=== PATIENT | male | born 1965 | race Two or more races ===

== ENCOUNTER 2025-06-01 06:39 | Emergency (ER) | payer OTHER ==
[~2025-06-01] VITALS: Ht 167.6 cm; Wt 90.7 kg
[2025-06-01 07:06] VITALS: BP 110/70; O2SAT 95
[2025-06-01] MEDS ORDERED: CARDURA1 MG PO (07:11)
[2025-06-01] MEDS ORDERED: DILTIAZEM 24HR180 MG PO (07:11)
[2025-06-01] MEDS ORDERED: FAMOtidine 10 MG/ML (4ML VIAL) IV ONE (07:30)
[2025-06-01] MEDS ORDERED: PIPERACILLIN/TAZOBACTAM SODIUM 3.375 GM VIAL IV ONE ×2 (07:30→08:11)
[2025-06-01] MEDS ORDERED: DIPHENHYDRAMINE HCL 50 MG/ML VIAL 1ML IV ONE (07:45)
[2025-06-01] MEDS ORDERED: METHYLPREDNISOLONE SOD SUCC 40 MG VIAL IV ONE (07:45)
[2025-06-01] MEDS ORDERED: 0.9 % SODIUM CHLORIDE 1,000 ML IV ONE (07:45)
[2025-06-01] MEDS ORDERED: METHYLPREDNISOLONE SOD SUCC 40 MG VIAL ONE (08:10)
[2025-06-01] MEDS ORDERED: DIPHENHYDRAMINE HCL 50 MG/ML VIAL 1ML ONE (08:10)
[2025-06-01] MEDS ORDERED: FAMOTIDINE/PF 20 MG/2 ML VIAL ONE (08:11)
[2025-06-01 08:21] LABS: BASO % 0.4 % (0.1-1.2); EOS # 0.07 (0.04-0.54); EOS % 1.3 % (0.7-7.0); LYMPH # 1.12 (1.18-3.74); LYMPH % 20.0 % (19.3-53.1); MEAN PLATELET VOLUME 10.00 fl (9.4-12.4); MONO # 0.38 (0.24-0.82); MONO % 6.8 % (4.7-12.5); NEUT # 3.96 (1.56-6.13); NEUT % 70.8 % (34.0-71.1); RED CELL DISTRIBUTION WIDTH 14.5 % (11.6-14.4)
[2025-06-01 08:45] LABS: ERYTHROCYTE SEDIMENTATION RATE 22 mm/hr (0-20)
[2025-06-01 09:02] LABS: ALT/SGPT 43 U/L (12-78); AST/SGOT 19 U/L (15-37); BILIRUBIN TOTAL 1.03 mg/dL (0.3-1.2); BUN CREA RATIO 9 (7.0-25.0); CREATININE SERUM 1.21 mg/dL (0.70-1.30); GFR 60.96; GLOBULINA 3.8 G/DL (2.4-3.5); GLUCOSE FASTING 138 mg/dL (65-100); OSMOLALITY SERUM 274 MOSM/KG (275-295)
[2025-06-01 09:04] LABS: INR 1.07
[2025-06-01 09:08] LABS: URINE APPEARANCE Clear; URINE BILIRRUBIN Negative (NEGATIVE); URINE BLOOD Small; URINE COLOR Yellow; URINE GLUCOSE Negative (NEGATIVE); URINE KETONE Negative (NEGATIVE); URINE LEUKOCYTE Large; URINE NITRATE Negative; URINE PROTEIN Negative (NEGATIVE); URINE UROBILINOGEN 0.2 E.U./dl
[2025-06-01 09:11] LABS: URINE BACTERIA 57.5 uL (0.0-1933); URINE RBC 10.5 uL (0.0-20.8); URINE WBC 611.9 uL (0.0-23.2)
[2025-06-01 09:18] LABS: URINE CAST 0.43 uL (0.0-1.40); URINE EPITHELIAL CELLS 0.1 uL (0.0-38.8)
[2025-06-01] MEDS ORDERED: VANCOMYCIN HCL 1,000 MG VIAL ONE (09:49)
[2025-06-01] MEDS ORDERED: TAMSULOSIN HCL 0.4 MG CAP PO ONE ×2 (11:00→11:07)
[2025-06-01] MEDS ORDERED: CIPRO500 MG PO (11:15)
[2025-06-01] MEDS ORDERED: PEPCID AC20 MG PO (11:15)
[2025-06-01] MEDS ORDERED: METRONIDAZOLE500 MG PO (11:15)
== END 2025-06-01 13:03 | disposition home or self-care (01) ==
LOC: ER 06:39
PROVIDERS: General Practice
DX: N39.0 Urinary tract infection, site not specified (principal); M54.89 Other dorsalgia; K57.30 Diverticulosis of large intestine without perforation or abscess without bleeding; I10 Essential (primary) hypertension; N32.1 Vesicointestinal fistula; N20.0 Calculus of kidney; Z91.041 Radiographic dye allergy status; F44.89 Other dissociative and conversion disorders

== ENCOUNTER 2025-06-03 04:26 | Inpatient (IN) | payer OTHER ==
[~2025-06-03] VITALS: Ht 167.6 cm; Wt 90.7 kg
[~2025-06-03 04:26] MED LIST: CARDURA1 MG PO; CIPRO500 MG PO; DILTIAZEM 24HR180 MG PO; METRONIDAZOLE500 MG PO; PEPCID AC20 MG PO
[2025-06-03] MEDS ORDERED: MORPHINE SULFATE 4 MG/ML CARTRIDGE IV STA ×2 (05:14→14:29)
[2025-06-03] MEDS ORDERED: 0.9 % SODIUM CHLORIDE 1,000 ML IV ONE (05:15)
[2025-06-03] MEDS ORDERED: PROMETHAZINE HCL 50 MG/ML AMPUL IM STA (05:15)
[2025-06-03] MEDS ORDERED: PROMETHAZINE HCL 50 MG/ML AMPUL IM ONE (05:19)
[2025-06-03 05:51] LABS: BASO % 0.2 % (0.1-1.2); EOS # 0.04 (0.04-0.54); EOS % 0.4 % (0.7-7.0); LYMPH # 1.34 (1.18-3.74); LYMPH % 13.2 % (19.3-53.1); MEAN PLATELET VOLUME 10.20 fl (9.4-12.4); MONO # 0.48 (0.24-0.82); MONO % 4.7 % (4.7-12.5); NEUT # 8.21 (1.56-6.13); NEUT % 80.7 % (34.0-71.1); RED CELL DISTRIBUTION WIDTH 14.6 % (11.6-14.4)
[2025-06-03] MEDS ORDERED: LACTOBACILLUS ACIDOPHILUS 1 CAP CAP PO STA (05:55)
[2025-06-03] MEDS ORDERED: LACTOBACILLUS ACIDOPHILUS 1 CAP CAP PO ONE (05:58)
[2025-06-03 06:24] LABS: INR 1.08
[2025-06-03 06:45] LABS: ALT/SGPT 42.0 U/L (12-78); AST/SGOT 20.0 U/L (15-37); BILIRUBIN TOTAL 0.63 mg/dL (0.3-1.2); BILIRUBIN,CONJUGATED 0.14 mg/dL (0.0-0.2); BUN CREA RATIO 23.0 (7.0-25.0); CREATININE SERUM 1.05 mg/dL (0.70-1.30); GFR 71.8; GLOBULINA 3.4 G/DL (2.4-3.5); GLUCOSE FASTING 137.0 mg/dL (65-100); OSMOLALITY SERUM 280.0 MOSM/KG (275-295)
[2025-06-03 08:17] LABS: URINE APPEARANCE Cloudy; URINE BILIRRUBIN Negative (NEGATIVE); URINE COLOR Dark Yellow; URINE GLUCOSE Negative (NEGATIVE); URINE KETONE Trace (NEGATIVE); URINE LEUKOCYTE Moderate; URINE NITRATE Negative; URINE PROTEIN 30 (NEGATIVE); URINE UROBILINOGEN 1.0 E.U./dl
[2025-06-03 08:21] LABS: URINE BACTERIA 154.7 uL (0.0-1933); URINE RBC 11.7 uL (0.0-20.8); URINE WBC 1365.8 uL (0.0-23.2)
[2025-06-03 08:23] LABS: URINE BLOOD TRACES; URINE CAST 1.17 uL (0.0-1.40); URINE EPITHELIAL CELLS 0.7 uL (0.0-38.8)
[2025-06-03] MEDS ORDERED: MORPHINE SULFATE 4 MG/ML CARTRIDGE IV ONE (08:45)
[2025-06-03] MEDS ORDERED: PIPERACILLIN/TAZOBACTAM SODIUM 3.375 GM VIAL IV ONE ×2 (09:54→10:00)
[2025-06-03] MEDS ORDERED: FAMOTIDINE/PF 20 MG/2 ML VIAL ONE ×2 (11:13→19:59)
[2025-06-03] MEDS ORDERED: FAMOTIDINE/PF 20 MG/2 ML VIAL IV STA (11:15)
[2025-06-03] MEDS ORDERED: ONDANSETRON HCL 2 MG/ML VIAL IV STA (12:27)
[2025-06-03] MEDS ORDERED: ONDANSETRON HCL 2 MG/ML VIAL ONE ×2 (12:46→19:59)
[2025-06-03] MEDS ORDERED: ACETAMINOPHEN 500 MG GEL..CAP PO ONE (12:55)
[2025-06-03] MEDS ORDERED: TRAMADOL HCL100 M1 PO (16:55)
[2025-06-03] MEDS ORDERED: LEVOFLOXACIN750 MG PO (16:55)
[2025-06-03] MEDS ORDERED: ONDANSETRON HCL 2 MG/ML VIAL IV ONE ×3 (20:00→20:15)
[2025-06-03] MEDS ORDERED: FAMOTIDINE/PF 20 MG/2 ML VIAL IV ONE ×3 (20:00→20:15)
[2025-06-03] MEDS ORDERED: KETOROLAC TROMETHAMINE 30 MG VIAL ONE (20:03)
[2025-06-03] MEDS ORDERED: KETOROLAC TROMETHAMINE 30 MG VIAL IV ONE (20:15)
[2025-06-03] MEDS ORDERED: KETOROLAC TROMETHAMINE 30 MG VIAL IM ONE (20:15)
[2025-06-03] MEDS ORDERED: DILTIAZEM HCL 240 MG CAP.SR.24H PO SCH (23:39)
[2025-06-03] MEDS ORDERED: ONDANSETRON HCL 4 MG in 0.9 % SODIUM CHLORIDE 50 ML IV PRN (23:45)
[2025-06-03] MEDS ORDERED: 0.9 % SODIUM CHLORIDE 1,000 ML IV SCH (23:45)
[2025-06-03] MEDS ORDERED: MORPHINE SULFATE 4 MG/ML CARTRIDGE IV PRN (23:45)
[2025-06-03] MEDS ORDERED: FAMOTIDINE/PF 20 MG in 0.9 % SODIUM CHLORIDE 8 ML IV PUSH SCH (23:48)
[2025-06-04] MEDS ORDERED: PIPERACILLIN/TAZOBACTAM SODIUM 3.375 GM in 0.9 % SODIUM CHLORIDE 100 ML IV SCH
[2025-06-04 08:00] VITALS: BP 118/85; O2SAT 94
[2025-06-04] MEDS ORDERED: ACETAMINOPHEN 500 MG GEL..CAP PO PRN (13:45)
[2025-06-04 16:00] VITALS: BP 119/75; O2SAT 95
[2025-06-04] MEDS ORDERED: ENOXAPARIN SODIUM 40 MG/0.4 ML SYRINGE SUBCUTANEO SCH (17:00)
[2025-06-05 00:28] VITALS: BP 110/69; O2SAT 95
[2025-06-05 07:40] LABS: BASO % 0.3 % (0.1-1.2); EOS # 0.01 (0.04-0.54); EOS % 0.1 % (0.7-7.0); LYMPH # 0.59 (1.18-3.74); LYMPH % 5.6 % (19.3-53.1); MEAN PLATELET VOLUME 10.80 fl (9.4-12.4); MONO # 0.34 (0.24-0.82); MONO % 3.2 % (4.7-12.5); NEUT # 9.43 (1.56-6.13); NEUT % 89.8 % (34.0-71.1); RED CELL DISTRIBUTION WIDTH 14.9 % (11.6-14.4)
[2025-06-05 07:41] LABS: BUN CREA RATIO 14.0 (7.0-25.0); CREATININE SERUM 1.0 mg/dL (0.70-1.30); GFR 75.96; GLUCOSE FASTING 106.0 mg/dL (65-100); OSMOLALITY SERUM 282.0 MOSM/KG (275-295)
[2025-06-05 08:00] VITALS: BP 121/81; O2SAT 94
[2025-06-05] MEDS ORDERED: POTASSIUM PHOS,M-BASIC-D-BASIC 3 MM/ML VIAL IV NR (12:15)
[2025-06-05 14:45] LABS: ABG PH 7.474 (7.35-7.45); ABG PO2 66.1 mmHg (80-100); BICARBONATE 19.4 mmol/l (23-25)
[2025-06-05 14:56] LABS: o2 21 %
[2025-06-05 16:00] VITALS: BP 116/74; O2SAT 95
[2025-06-06 00:14] VITALS: BP 123/73; O2SAT 95
[2025-06-06 06:09] LABS: BASO % 0.4 % (0.1-1.2); EOS # 0.07 (0.04-0.54); EOS % 0.7 % (0.7-7.0); LYMPH # 0.72 (1.18-3.74); LYMPH % 6.8 % (19.3-53.1); MEAN PLATELET VOLUME 10.70 fl (9.4-12.4); MONO # 0.72 (0.24-0.82); MONO % 6.8 % (4.7-12.5); NEUT # 8.89 (1.56-6.13); NEUT % 84.0 % (34.0-71.1); RED CELL DISTRIBUTION WIDTH 14.7 % (11.6-14.4)
[2025-06-06 06:43] LABS: BUN CREA RATIO 19.0 (7.0-25.0); CREATININE SERUM 0.67 mg/dL (0.70-1.30); GFR 120.59; GLUCOSE FASTING 97.0 mg/dL (65-100); OSMOLALITY SERUM 276.0 MOSM/KG (275-295)
[2025-06-06 09:00] VITALS: BP 157/88; O2SAT 93
[2025-06-06 16:08] VITALS: BP 152/85; O2SAT 95
[2025-06-06 16:18] LABS: BUN CREA RATIO 20.0 (7.0-25.0); CHOL HDL RATIO 7.7 (0-5.0); CREATININE SERUM 0.71 mg/dL (0.70-1.30); GFR 112.79; GLUCOSE FASTING 119.0 mg/dL (65-100); LDL 71.0 mg/dl (0-130); OSMOLALITY SERUM 274.0 MOSM/KG (275-295); VLDL 23.0 (0-39)
[2025-06-06 16:22] LABS: HDL 14.0 mg/dl (40-60)
[2025-06-06] MEDS ORDERED: AA 4.25%/CAL/LYTES/DEXT 5% 1,000 ML PERIFERAL SCH (17:00)
[2025-06-06] MEDS ORDERED: fentaNYL CITRATE 50 MCG/ML AMPUL IV PUSH ONE (19:00)
[2025-06-06] MEDS ORDERED: MIDAZOLAM HCL 2 MG/2 ML VIAL IV PUSH ONE (19:00)
[2025-06-06] MEDS ORDERED: FAT EMULSIONS 250 ML IV SCH (21:00)
[2025-06-07 01:45] VITALS: BP 156/91; O2SAT 97
[2025-06-07 09:55] VITALS: BP 152/85; O2SAT 95
[2025-06-07 15:24] VITALS: BP 162/78; O2SAT 97
[2025-06-08 01:41] VITALS: BP 122/79; O2SAT 95
[2025-06-08 06:20] LABS: BASO % 0.4 % (0.1-1.2); EOS # 0.09 (0.04-0.54); EOS % 0.8 % (0.7-7.0); LYMPH # 0.97 (1.18-3.74); LYMPH % 8.2 % (19.3-53.1); MEAN PLATELET VOLUME 10.90 fl (9.4-12.4); MONO # 0.75 (0.24-0.82); MONO % 6.3 % (4.7-12.5); NEUT # 8.97 (1.56-6.13); NEUT % 75.8 % (34.0-71.1); RED CELL DISTRIBUTION WIDTH 14.7 % (11.6-14.4)
[2025-06-08 06:53] LABS: ALT/SGPT 29.0 U/L (12-78); AST/SGOT 36.0 U/L (15-37); BILIRUBIN TOTAL 0.59 mg/dL (0.3-1.2); BUN CREA RATIO 25.0 (7.0-25.0); CREATININE SERUM 0.61 mg/dL (0.70-1.30); GFR 134.38; GLOBULINA 2.8 G/DL (2.4-3.5); GLUCOSE FASTING 152.0 mg/dL (65-100); OSMOLALITY SERUM 279.0 MOSM/KG (275-295)
[2025-06-08 07:13] LABS: NEUTROPHILS MAN 74.0 %
[2025-06-08 07:14] LABS: BAND MAN 8.0 %; EOSINOPHIL MAN 2.0 %; LYMPHOCYTE MAN 6.0 %; MONOCYTE MAN 4.0 %
[2025-06-08] MEDS ORDERED: PANTOPRAZOLE SODIUM 40 MG/VIAL VIAL IV SCH (09:00)
[2025-06-08 09:18] VITALS: BP 125/80; O2SAT 96
[2025-06-08 16:45] VITALS: BP 108/70; O2SAT 95
[2025-06-08] MEDS ORDERED: FAT EMULSIONS 250 ML IV SCH (21:00)
[2025-06-09 00:44] VITALS: BP 134/77; O2SAT 95
[2025-06-09 06:18] LABS: BASO % 0.5 % (0.1-1.2); EOS # 0.11 (0.04-0.54); EOS % 0.8 % (0.7-7.0); LYMPH # 1.18 (1.18-3.74); LYMPH % 9.0 % (19.3-53.1); MEAN PLATELET VOLUME 11.00 fl (9.4-12.4); MONO # 0.77 (0.24-0.82); MONO % 5.9 % (4.7-12.5); NEUT # 9.70 (1.56-6.13); NEUT % 73.7 % (34.0-71.1); RED CELL DISTRIBUTION WIDTH 14.5 % (11.6-14.4)
[2025-06-09 07:30] VITALS: BP 148/90; O2SAT 97
[2025-06-09 08:14] LABS: BAND MAN 25.0 %; EOSINOPHIL MAN 1.0 %; LYMPHOCYTE MAN 11.0 %; MONOCYTE MAN 6.0 %; NEUTROPHILS MAN 56.0 %
[2025-06-09 18:05] VITALS: BP 147/87; O2SAT 95
[2025-06-10 00:56] VITALS: BP 123/73; O2SAT 95
[2025-06-10 08:47] VITALS: BP 121/71; O2SAT 96
[2025-06-10] MEDS ORDERED: DIATRIZOATE MEGLUMINE, SODIUM 30 ML BOTTLE PO ONE (10:00)
[2025-06-10 16:00] VITALS: BP 134/75; O2SAT 96
[2025-06-10] MEDS ORDERED: ACYCLOVIR 800 MG TABLET PO SCH (20:48)
[2025-06-10] MEDS ORDERED: ACYCLOVIR 400 MG TABLET PO ONE (22:09)
[2025-06-11 01:31] VITALS: BP 138/77; O2SAT 97
[2025-06-11 08:00] VITALS: BP 134/84; O2SAT 95
[2025-06-11] MEDS ORDERED: ACYCLOVIR 800 MG TABLET PO SCH (09:00)
[2025-06-11 16:00] VITALS: BP 136/81; O2SAT 94
[2025-06-11] MEDS ORDERED: SODIUM CL 0.9% 100 ML IV.SOLN IV ONE (22:01)
[2025-06-12 00:42] VITALS: BP 135/74; O2SAT 97
[2025-06-12 09:00] VITALS: BP 126/77; O2SAT 95
[2025-06-12 16:58] VITALS: BP 126/80; O2SAT 96
[2025-06-13 01:23] VITALS: BP 150/84; O2SAT 96
[2025-06-13 07:12] LABS: BASO % 0.3 % (0.1-1.2); EOS # 0.09 (0.04-0.54); EOS % 0.8 % (0.7-7.0); LYMPH # 0.82 (1.18-3.74); LYMPH % 7.7 % (19.3-53.1); MEAN PLATELET VOLUME 11.20 fl (9.4-12.4); MONO # 0.47 (0.24-0.82); MONO % 4.4 % (4.7-12.5); NEUT # 8.89 (1.56-6.13); NEUT % 83.2 % (34.0-71.1); RED CELL DISTRIBUTION WIDTH 15.7 % (11.6-14.4)
[2025-06-13 07:37] LABS: INR 1.08
[2025-06-13 07:43] LABS: ALT/SGPT 45.0 U/L (12-78); AST/SGOT 25.0 U/L (15-37); BILIRUBIN TOTAL 0.7 mg/dL (0.3-1.2); BILIRUBIN,CONJUGATED 0.23 mg/dL (0.0-0.2); BUN CREA RATIO 15.0 (7.0-25.0); CHOL HDL RATIO 7.4 (0-5.0); CREATININE SERUM 0.84 mg/dL (0.70-1.30); GFR 92.89; GLOBULINA 4.0 G/DL (2.4-3.5); GLUCOSE FASTING 138.0 mg/dL (65-100); HDL 23.0 mg/dl (40-60); LDL 112.0 mg/dl (0-130); OSMOLALITY SERUM 278.0 MOSM/KG (275-295); VLDL 36.0 (0-39)
[2025-06-13 08:00] VITALS: BP 124/76; O2SAT 95
[2025-06-13] MEDS ORDERED: MORPHINE SULFATE 4 MG/ML CARTRIDGE IV PRN (08:15)
[2025-06-13 09:41] LABS: UREA CLEARANCE 45.3 ML/MIN
[2025-06-13 16:56] VITALS: BP 134/78; O2SAT 95
[2025-06-14 00:56] VITALS: BP 122/74; O2SAT 95
[2025-06-14 08:00] VITALS: BP 120/75
[2025-06-14 16:24] VITALS: BP 108/52; O2SAT 96
[2025-06-14] MEDS ORDERED: fentaNYL CITRATE 50 MCG/ML AMPUL IV PUSH ONE (23:00)
[2025-06-14] MEDS ORDERED: MIDAZOLAM HCL 2 MG/2 ML VIAL IV PUSH ONE (23:00)
[2025-06-15 00:53] VITALS: BP 117/71; O2SAT 97
[2025-06-15 16:32] VITALS: BP 124/74; O2SAT 97
[2025-06-16 01:33] VITALS: BP 111/70; O2SAT 96
[2025-06-16 10:33] VITALS: BP 109/67; O2SAT 96
[2025-06-16 16:00] VITALS: BP 124/74; O2SAT 96
[2025-06-16] MEDS ORDERED: FAMOTIDINE/PF 20 MG/2 ML VIAL IV STA (19:25)
[2025-06-17 01:08] VITALS: BP 120/76; O2SAT 95
[2025-06-17 08:00] VITALS: BP 124/74; O2SAT 97
[2025-06-17] MEDS ORDERED: FAMOTIDINE/PF 20 MG/2 ML VIAL IV SCH (09:00)
[2025-06-17 17:40] VITALS: BP 141/80
[2025-06-18 01:45] VITALS: BP 124/79; O2SAT 96
[2025-06-18 09:09] VITALS: BP 128/79; O2SAT 97
[2025-06-18 15:40] LABS: BASO % 0.8 % (0.1-1.2); EOS # 0.11 (0.04-0.54); EOS % 1.9 % (0.7-7.0); LYMPH # 0.98 (1.18-3.74); LYMPH % 16.5 % (19.3-53.1); MEAN PLATELET VOLUME 11.20 fl (9.4-12.4); MONO # 0.59 (0.24-0.82); MONO % 9.9 % (4.7-12.5); NEUT # 3.93 (1.56-6.13); NEUT % 66.2 % (34.0-71.1); RED CELL DISTRIBUTION WIDTH 15.1 % (11.6-14.4)
[2025-06-18 16:04] LABS: BUN CREA RATIO 15.0 (7.0-25.0); CREATININE SERUM 0.84 mg/dL (0.70-1.30); GFR 92.89; GLUCOSE FASTING 119.0 mg/dL (65-100); OSMOLALITY SERUM 273.0 MOSM/KG (275-295)
[2025-06-18] MEDS ORDERED: PIPERACILLIN/TAZOBACTAM SODIUM 3.375 GM VIAL IV ONE (16:22)
[2025-06-18 21:43] VITALS: BP 114/69
[2025-06-19] MEDS ORDERED: MORPHINE SULFATE 4 MG/ML CARTRIDGE IV PRN (02:00)
[2025-06-19 02:14] VITALS: BP 123/70; O2SAT 97
[2025-06-19 10:17] VITALS: BP 144/89; O2SAT 95
[2025-06-19] MEDS ORDERED: DIATRIZOATE MEGLUMINE, SODIUM 30 ML BOTTLE PO STA (15:36)
[2025-06-19] MEDS ORDERED: BARIUM SULFATE 450 ML ORAL.SUSP PO STA (15:44)
[2025-06-19] MEDS ORDERED: PIPERACILLIN/TAZOBACTAM SODIUM 3.375 GM VIAL IV ONE (16:10)
[2025-06-20 03:40] VITALS: BP 97/59; O2SAT 95
[2025-06-20 06:40] LABS: BASO % 0.7 % (0.1-1.2); EOS # 0.13 (0.04-0.54); EOS % 1.9 % (0.7-7.0); LYMPH # 1.23 (1.18-3.74); LYMPH % 17.6 % (19.3-53.1); MEAN PLATELET VOLUME 10.60 fl (9.4-12.4); MONO # 0.57 (0.24-0.82); MONO % 8.2 % (4.7-12.5); NEUT # 4.60 (1.56-6.13); NEUT % 65.9 % (34.0-71.1); RED CELL DISTRIBUTION WIDTH 15.0 % (11.6-14.4)
[2025-06-20 07:10] LABS: INR 1.1
[2025-06-20 07:14] LABS: ALT/SGPT 37.0 U/L (12-78); AST/SGOT 18.0 U/L (15-37); BILIRUBIN TOTAL 0.52 mg/dL (0.3-1.2); BILIRUBIN,CONJUGATED 0.14 mg/dL (0.0-0.2); BUN CREA RATIO 18.0 (7.0-25.0); CHOL HDL RATIO 7.2 (0-5.0); CREATININE SERUM 0.88 mg/dL (0.70-1.30); GFR 88.04; GLOBULINA 3.9 G/DL (2.4-3.5); GLUCOSE FASTING 115.0 mg/dL (65-100); HDL 26.0 mg/dl (40-60); LDL 126.0 mg/dl (0-130); OSMOLALITY SERUM 276.0 MOSM/KG (275-295); VLDL 36.0 (0-39)
[2025-06-20 07:42] LABS: BAND MAN 4.0 %; EOSINOPHIL MAN 5.0 %; LYMPHOCYTE MAN 20.0 %; MONOCYTE MAN 13.0 %; NEUTROPHILS MAN 55.0 %
[2025-06-20 08:20] LABS: UREA CLEARANCE 35.3 ML/MIN
[2025-06-20 08:28] VITALS: BP 154/79
[2025-06-20 16:57] VITALS: BP 129/71; O2SAT 96
[2025-06-21 01:59] VITALS: BP 117/70; O2SAT 96
[2025-06-21 09:44] VITALS: BP 129/73; O2SAT 97
[2025-06-21 17:14] VITALS: BP 129/66
[2025-06-22 01:20] VITALS: BP 119/74; O2SAT 97
[2025-06-22 08:00] VITALS: BP 149/79; O2SAT 96
[2025-06-22] MEDS ORDERED: PIPERACILLIN/TAZOBACTAM SODIUM 3.375 GM VIAL IV ONE (11:38)
[2025-06-22 18:42] VITALS: BP 112/72
[2025-06-23 02:31] VITALS: BP 121/73; O2SAT 96
[2025-06-23] MEDS ORDERED: GUAIFENESIN 200 MG/10 ML BLIST.PACK PO SCH (07:31)
[2025-06-23 09:10] VITALS: BP 137/69; O2SAT 98
[2025-06-23] MEDS ORDERED: LACTOBACILLUS ACIDOPHILUS 1 CAP CAP PO SCH (13:00)
[2025-06-23 19:40] VITALS: BP 138/82; O2SAT 94
[2025-06-24 00:57] VITALS: BP 127/87; O2SAT 97
[2025-06-24 09:23] VITALS: BP 120/75; O2SAT 97
[2025-06-24 18:28] VITALS: BP 126/77; O2SAT 94
[2025-06-25 01:56] VITALS: BP 123/77; O2SAT 96
[2025-06-25 09:18] VITALS: BP 120/76; O2SAT 96
[2025-06-25] MEDS ORDERED: NASAL MIST126 ML NASAL (11:14)
[2025-06-25] MEDS ORDERED: AUGMENTIN XR 11 EACH PO (11:14)
[2025-06-25] MEDS ORDERED: CARTIA XT240 MG PO (11:14)
== END 2025-06-25 12:18 | disposition home or self-care (01) | DRG 393 ==
LOC: ER 04:26 → MEDI 06-04 01:27 → SURH 06-04 01:27 → SURG 06-04 01:27 → SURH 06-04 15:25 → MEDI 06-17 15:09
PROVIDERS: General Practice; Internal Medicine; Internal Medicine Infectious Disease; Student in an Organized Health Care Education/Training Program; Surgery; ADMIT Internal Medicine; ATTEND Internal Medicine
PROC: BW21ZZZ Computerized Tomography (CT Scan) of Abdomen and Pelvis (ICD-10-PCS; 2025-06-03)
PROC: 0H97XZZ Drainage of Abdomen Skin, External Approach (ICD-10-PCS; principal; 2025-06-06)
PROC: 02HV33Z Insertion of Infusion Device into Superior Vena Cava, Percutaneous Approach (ICD-10-PCS; 2025-06-06)
PROC: BW21ZZZ Computerized Tomography (CT Scan) of Abdomen and Pelvis (ICD-10-PCS; 2025-06-11)
PROC: 0H98XZZ Drainage of Buttock Skin, External Approach (ICD-10-PCS; 2025-06-14)
PROC: BW20YZZ Computerized Tomography (CT Scan) of Abdomen using Other Contrast (ICD-10-PCS; 2025-06-19)
PROC: 0WW Anatomical Regions, General, Revision (ICD-10-PCS; 2025-06-22)
DX: K63.1 Perforation of intestine (nontraumatic) (principal); A41.9 Sepsis, unspecified organism; N39.0 Urinary tract infection, site not specified; B96.20 Unspecified Escherichia coli [E. coli] as the cause of diseases classified elsewhere

== ENCOUNTER 2025-06-14 12:45 | Inpatient (IN) | payer OTHER ==
[~2025-06-14] VITALS: Ht 167.6 cm; Wt 84.4 kg
[~2025-06-14 12:45] MED LIST changes: +LEVOFLOXACIN750 MG PO; +TRAMADOL HCL100 M1 PO
[2025-06-25] MEDS ORDERED: NASAL MIST126 ML NASAL (11:14)
[2025-06-25] MEDS ORDERED: AUGMENTIN XR 11 EACH PO (11:14)
[2025-06-25] MEDS ORDERED: CARTIA XT240 MG PO (11:14)
[2025-07-20] MEDS ORDERED: METRONIDAZOLE/SODIUM CHLORIDE 500 MG/100 ML PIGGYBACK IV ONE ×2 (05:50→16:40)
[2025-07-20] MEDS ORDERED: CEFTRIAXONE SODIUM 2,000 MG VIAL ONE (05:50)
[2025-07-20] MEDS ORDERED: SUGAMMADEX SODIUM 200 MG/2 ML VIAL IV ONE (06:48)
[2025-07-20] MEDS ORDERED: BUPIVACAINE HCL/Mpf 0.5% 10ML VIAL ONE (06:48)
[2025-07-20] MEDS ORDERED: RINGERS SOLUTION,LACTATED 1,000 ML IV SCH (10:45)
[2025-07-20] MEDS ORDERED: ONDANSETRON HCL 2 MG/ML VIAL IV PRN (10:45)
[2025-07-20] MEDS ORDERED: MORPHINE SULFATE 4 MG/ML CARTRIDGE IV PRN (10:45)
[2025-07-20] MEDS ORDERED: OxyCODONE HCL 5 MG TABLET (ROXICODONE) PO PRN (10:45)
[2025-07-20 12:56] LABS: BASO % 0.2 % (0.1-1.2); EOS # 0.00 (0.04-0.54); EOS % 0.0 % (0.7-7.0); LYMPH # 0.97 (1.18-3.74); LYMPH % 11.9 % (19.3-53.1); MEAN PLATELET VOLUME 10.60 fl (9.4-12.4); MONO # 0.78 (0.24-0.82); MONO % 9.6 % (4.7-12.5); NEUT # 6.32 (1.56-6.13); NEUT % 77.8 % (34.0-71.1); RED CELL DISTRIBUTION WIDTH 14.9 % (11.6-14.4)
[2025-07-20] MEDS ORDERED: SIMETHICONE 125 MG CAPSULE PO SCH (13:00)
[2025-07-20] MEDS ORDERED: HYOSCYAMINE SULFATE 0.125 MG TAB.SUBL SL SCH (13:00)
[2025-07-20] MEDS ORDERED: ENALAPRILAT DIHYDRATE 1.25 MG/ML VIAL IV PRN (13:30)
[2025-07-20] MEDS ORDERED: ACETAMINOPHEN 500 MG GEL..CAP PO SCH (14:00)
[2025-07-20 14:12] LABS: BAND MAN 37.0 %; LYMPHOCYTE MAN 5.0 %; MONOCYTE MAN 8.0 %; NEUTROPHILS MAN 43.0 %
[2025-07-20] MEDS ORDERED: HYOSCYAMINE SULFATE 0.125 MG TAB.SUBL ONE (16:39)
[2025-07-20] MEDS ORDERED: SIMETHICONE 125 MG CAPSULE PO ONE (16:39)
[2025-07-20] MEDS ORDERED: GABAPENTIN 300 MG CAPSULE PO ONE (16:39)
[2025-07-20] MEDS ORDERED: GABAPENTIN 300 MG CAPSULE PO SCH (17:00)
[2025-07-20] MEDS ORDERED: METRONIDAZOLE/SODIUM CHLORIDE 500 MG/100 ML PIGGYBACK IV SCH (17:00)
[2025-07-20] MEDS ORDERED: METOCLOPRAMIDE HCL 5 MG/ML VIAL IV SCH (17:00)
[2025-07-20 18:25] VITALS: BP 148/79; O2SAT 95
[2025-07-20] MEDS ORDERED: CIPROFLOXACIN IN 5 % DEXTROSE 400 MG/200 ML PIGGYBAG IV SCH (21:00)
[2025-07-20] MEDS ORDERED: FAMOTIDINE/PF 20 MG/2 ML VIAL IV PUSH SCH (21:00)
[2025-07-21 02:02] VITALS: BP 103/63; O2SAT 95
[2025-07-21 06:49] LABS: BASO % 0.2 % (0.1-1.2); EOS # 0.01 (0.04-0.54); EOS % 0.1 % (0.7-7.0); LYMPH # 1.01 (1.18-3.74); LYMPH % 12.1 % (19.3-53.1); MEAN PLATELET VOLUME 10.50 fl (9.4-12.4); MONO # 0.80 (0.24-0.82); MONO % 9.6 % (4.7-12.5); NEUT # 6.44 (1.56-6.13); NEUT % 77.4 % (34.0-71.1); RED CELL DISTRIBUTION WIDTH 14.8 % (11.6-14.4)
[2025-07-21 07:13] LABS: BUN CREA RATIO 10.0 (7.0-25.0); CREATININE SERUM 0.9 mg/dL (0.70-1.30); GFR 85.79; GLUCOSE FASTING 160.0 mg/dL (65-100); OSMOLALITY SERUM 274.0 MOSM/KG (275-295)
[2025-07-21 07:57] LABS: BAND MAN 7.0 %; LYMPHOCYTE MAN 6.0 %; MONOCYTE MAN 12.0 %; NEUTROPHILS MAN 75.0 %
[2025-07-21 08:00] VITALS: BP 111/72; O2SAT 96
[2025-07-21] MEDS ORDERED: LACTULOSE 20 G/30 ML BLIST.PACK PO SCH (09:00)
[2025-07-21] MEDS ORDERED: DILTIAZEM HCL 180 MG CAP.SR.24H PO SCH (09:00)
[2025-07-21] MEDS ORDERED: LACTOBACILLUS ACIDOPHILUS 1 CAP CAP PO SCH (09:00)
[2025-07-21] MEDS ORDERED: GABAPENTIN 100 MG CAPSULE PO SCH (13:00)
[2025-07-21 16:00] VITALS: BP 108/70; O2SAT 95
[2025-07-21] MEDS ORDERED: AMINO ACIDS/PROTEIN HYDROLYS 30 ML BLIST.PACK PO SCH (17:00)
[2025-07-21] MEDS ORDERED: ENOXAPARIN SODIUM 40 MG/0.4 ML SYRINGE SUBCUTANEO SCH (17:00)
[2025-07-22] VITALS: BP 115/74; O2SAT 96
[2025-07-22 06:35] LABS: BUN CREA RATIO 13.0 (7.0-25.0); CREATININE SERUM 0.79 mg/dL (0.70-1.30); GFR 99.71; GLUCOSE FASTING 151.0 mg/dL (65-100); OSMOLALITY SERUM 270.0 MOSM/KG (275-295)
[2025-07-22 06:56] LABS: BASO % 0.3 % (0.1-1.2); EOS # 0.01 (0.04-0.54); EOS % 0.1 % (0.7-7.0); LYMPH # 1.06 (1.18-3.74); LYMPH % 9.7 % (19.3-53.1); MEAN PLATELET VOLUME 10.90 fl (9.4-12.4); MONO # 0.70 (0.24-0.82); MONO % 6.4 % (4.7-12.5); NEUT # 8.92 (1.56-6.13); NEUT % 81.9 % (34.0-71.1); RED CELL DISTRIBUTION WIDTH 14.8 % (11.6-14.4)
[2025-07-22 08:08] VITALS: BP 112/68; O2SAT 96
[2025-07-22 08:38] LABS: BAND MAN 10.0 %; LYMPHOCYTE MAN 1.0 %; MONOCYTE MAN 8.0 %; NEUTROPHILS MAN 80.0 %
[2025-07-22] MEDS ORDERED: ENOXAPARIN SODIUM 40 MG/0.4 ML SYRINGE SUBCUTANEO SCH (09:00)
[2025-07-22] MEDS ORDERED: MAGNESIUM SULFATE IN WATER 50 ML IV NR (10:00)
[2025-07-22] MEDS ORDERED: SOD FERRIC GLUC COMPLX/SUCROSE 62.5 MG in 0.9 % SODIUM CHLORIDE 50 ML IV SCH (12:00)
[2025-07-22] MEDS ORDERED: Cyanocobalamin/Mecobalamin 1 TAB.SL SL NR (12:00)
[2025-07-22] MEDS ORDERED: PIPERACILLIN/TAZOBACTAM SODIUM 3.375 GM in DEXTROSE 5 % IN WATER 100 ML IV SCH (12:56)
[2025-07-22 16:17] VITALS: BP 112/69; O2SAT 99
[2025-07-23 00:45] VITALS: BP 100/61; O2SAT 96
[2025-07-23 08:48] VITALS: BP 104/67; O2SAT 95
[2025-07-23] MEDS ORDERED: Cyanocobalamin/Mecobalamin 1 TAB.SL SL SCH (09:00)
[2025-07-23 17:10] VITALS: BP 112/54; O2SAT 96
[2025-07-23] MEDS ORDERED: GABAPENTIN 300 MG CAPSULE PO SCH (21:00)
[2025-07-23 23:50] VITALS: BP 133/71; O2SAT 98
[2025-07-24] MEDS ORDERED: MORPHINE SULFATE 4 MG/ML CARTRIDGE IV PRN (01:45)
[2025-07-24 08:33] LABS: BASO % 0.1 % (0.1-1.2); EOS # 0.05 (0.04-0.54); EOS % 0.7 % (0.7-7.0); LYMPH # 0.83 (1.18-3.74); LYMPH % 11.8 % (19.3-53.1); MEAN PLATELET VOLUME 11.00 fl (9.4-12.4); MONO # 0.58 (0.24-0.82); MONO % 8.2 % (4.7-12.5); NEUT # 5.16 (1.56-6.13); NEUT % 73.4 % (34.0-71.1); RED CELL DISTRIBUTION WIDTH 15.1 % (11.6-14.4)
[2025-07-24 08:48] VITALS: BP 124/74; O2SAT 96
[2025-07-24 08:48] LABS: ALT/SGPT 9.0 U/L (12-78); AST/SGOT 6.0 U/L (15-37); BILIRUBIN TOTAL 0.52 mg/dL (0.3-1.2); BUN CREA RATIO 21.0 (7.0-25.0); CREATININE SERUM 0.42 mg/dL (0.70-1.30); GFR 206.72; GLOBULINA 2.5 G/DL (2.4-3.5); GLUCOSE FASTING 96.0 mg/dL (65-100); OSMOLALITY SERUM 278.0 MOSM/KG (275-295)
[2025-07-24] MEDS ORDERED: MORPHINE SULFATE 4 MG/ML VIAL IV PRN (09:45)
[2025-07-24] MEDS ORDERED: POTASSIUM CHLORIDE IN WATER 100 ML IV NR (10:00)
[2025-07-24 11:07] LABS: BAND MAN 12.0 %; EOSINOPHIL MAN 1.0 %; LYMPHOCYTE MAN 11.0 %; MONOCYTE MAN 12.0 %; NEUTROPHILS MAN 60.0 %
[2025-07-24 14:23] LABS: BASO % 0.5 % (0.1-1.2); EOS # 0.07 (0.04-0.54); EOS % 0.8 % (0.7-7.0); LYMPH # 1.06 (1.18-3.74); LYMPH % 12.0 % (19.3-53.1); MEAN PLATELET VOLUME 10.10 fl (9.4-12.4); MONO # 0.62 (0.24-0.82); MONO % 7.0 % (4.7-12.5); NEUT # 6.33 (1.56-6.13); NEUT % 71.6 % (34.0-71.1); RED CELL DISTRIBUTION WIDTH 14.9 % (11.6-14.4)
[2025-07-24 15:14] LABS: BAND MAN 2.0 %; LYMPHOCYTE MAN 14.0 %; MONOCYTE MAN 4.0 %; NEUTROPHILS MAN 76.0 %
[2025-07-24 15:15] LABS: EOSINOPHIL MAN 1.0 %; METAMYELOCYTE 2.0 %; MYELOCYTE 1.0 %
[2025-07-24] MEDS ORDERED: AA 2.36%/D6.8W/FAT/E-LYTES NO9 1,440 ML IV SCH ×2 (15:45→17:00)
[2025-07-24 16:49] VITALS: BP 144/82; O2SAT 96
[2025-07-24 19:02] LABS: BUN CREA RATIO 12.0 (7.0-25.0); CHOL HDL RATIO 5.5 (0-5.0); CREATININE SERUM 0.59 mg/dL (0.70-1.30); GFR 139.65; GLUCOSE FASTING 120.0 mg/dL (65-100); HDL 22.0 mg/dl (40-60); LDL 58.0 mg/dl (0-130); OSMOLALITY SERUM 277.0 MOSM/KG (275-295); VLDL 42.0 (0-39)
[2025-07-24 19:47] LABS: URINE APPEARANCE Clear; URINE BILIRRUBIN Negative (NEGATIVE); URINE BLOOD Negative; URINE COLOR Yellow; URINE GLUCOSE Negative (NEGATIVE); URINE KETONE 15 (NEGATIVE); URINE LEUKOCYTE Negative; URINE NITRATE Negative; URINE PROTEIN Negative (NEGATIVE); URINE UROBILINOGEN 0.2 E.U./dl
[2025-07-24 19:51] LABS: URINE BACTERIA 4.7 uL (0.0-1933); URINE RBC 6.0 uL (0.0-20.8); URINE WBC 3.6 uL (0.0-23.2)
[2025-07-24 20:17] LABS: URINE CAST 0.00 uL (0.0-1.40); URINE EPITHELIAL CELLS 0.6 uL (0.0-38.8)
[2025-07-25 00:39] VITALS: BP 130/71; O2SAT 97
[2025-07-25 06:47] LABS: BASO % 0.4 % (0.1-1.2); EOS # 0.14 (0.04-0.54); EOS % 1.5 % (0.7-7.0); LYMPH # 1.26 (1.18-3.74); LYMPH % 13.4 % (19.3-53.1); MEAN PLATELET VOLUME 10.30 fl (9.4-12.4); MONO # 0.64 (0.24-0.82); MONO % 6.8 % (4.7-12.5); NEUT # 6.39 (1.56-6.13); NEUT % 67.9 % (34.0-71.1); RED CELL DISTRIBUTION WIDTH 15.1 % (11.6-14.4)
[2025-07-25 08:00] VITALS: BP 149/89; O2SAT 96
[2025-07-25 08:14] LABS: BAND MAN 19.0 %; NEUTROPHILS MAN 59.0 %
[2025-07-25 08:15] LABS: LYMPHOCYTE MAN 17.0 %; MONOCYTE MAN 3.0 %
[2025-07-25] MEDS ORDERED: METHYLPREDNISOLONE SOD SUCC 40 MG VIAL IV NR (11:45)
[2025-07-25] MEDS ORDERED: DIPHENHYDRAMINE HCL 50 MG/ML VIAL 1ML IV NR (11:45)
[2025-07-25] MEDS ORDERED: DIATRIZOATE MEGLUMINE, SODIUM 30 ML BOTTLE PO NR (12:00)
[2025-07-25 14:20] LABS: BASO % 0.8 % (0.1-1.2); EOS # 0.08 (0.04-0.54); EOS % 0.8 % (0.7-7.0); LYMPH # 0.88 (1.18-3.74); LYMPH % 8.5 % (19.3-53.1); MEAN PLATELET VOLUME 10.70 fl (9.4-12.4); MONO # 0.54 (0.24-0.82); MONO % 5.2 % (4.7-12.5); NEUT # 7.81 (1.56-6.13); NEUT % 74.9 % (34.0-71.1); RED CELL DISTRIBUTION WIDTH 15.1 % (11.6-14.4)
[2025-07-25 14:49] LABS: ALT/SGPT 14.0 U/L (12-78); AST/SGOT 11.0 U/L (15-37); BILIRUBIN TOTAL 0.6 mg/dL (0.3-1.2); BILIRUBIN,CONJUGATED 0.15 mg/dL (0.0-0.2); BUN CREA RATIO 10.0 (7.0-25.0); CHOL HDL RATIO 5.8 (0-5.0); CREATININE SERUM 0.59 mg/dL (0.70-1.30); GFR 139.65; GLOBULINA 3.7 G/DL (2.4-3.5); GLUCOSE FASTING 149.0 mg/dL (65-100); HDL 26.0 mg/dl (40-60); LDL 76.0 mg/dl (0-130); OSMOLALITY SERUM 276.0 MOSM/KG (275-295); VLDL 48.0 (0-39)
[2025-07-25 14:54] LABS: INR 1.08
[2025-07-25 15:40] LABS: EOSINOPHIL MAN 1.0 %; LYMPHOCYTE MAN 6.0 %; METAMYELOCYTE 3.0 %; MONOCYTE MAN 6.0 %; NEUTROPHILS MAN 80.0 %; PROMYELOCYTE 1.0 %
[2025-07-25 15:41] LABS: MYELOCYTE 2.0 %
[2025-07-25 16:38] VITALS: BP 138/78; O2SAT 95
[2025-07-26 00:53] VITALS: BP 144/82; O2SAT 95
[2025-07-26 06:17] LABS: BASO % 0.3 % (0.1-1.2); EOS # 0.01 (0.04-0.54); EOS % 0.1 % (0.7-7.0); LYMPH # 0.84 (1.18-3.74); LYMPH % 8.9 % (19.3-53.1); MEAN PLATELET VOLUME 11.90 fl (9.4-12.4); MONO # 0.44 (0.24-0.82); MONO % 4.7 % (4.7-12.5); NEUT # 7.29 (1.56-6.13); NEUT % 77.2 % (34.0-71.1); RED CELL DISTRIBUTION WIDTH 15.2 % (11.6-14.4)
[2025-07-26 06:29] LABS: BUN CREA RATIO 15.0 (7.0-25.0); CREATININE SERUM 0.53 mg/dL (0.70-1.30); GFR 158.05; GLUCOSE FASTING 169.0 mg/dL (65-100); OSMOLALITY SERUM 276.0 MOSM/KG (275-295)
[2025-07-26 08:00] VITALS: BP 149/87; O2SAT 97
[2025-07-26 08:21] LABS: BAND MAN 5.0 %; LYMPHOCYTE MAN 7.0 %; MONOCYTE MAN 11.0 %; NEUTROPHILS MAN 77.0 %
[2025-07-26 15:58] VITALS: BP 148/80; O2SAT 97
[2025-07-26] MEDS ORDERED: FLUCONAZOLE IN NACL,ISO-OSM 400 MG/200 ML PIGGYBAG IV ONE (18:30)
[2025-07-27 00:30] VITALS: BP 124/75; O2SAT 96
[2025-07-27 09:18] VITALS: BP 130/71; O2SAT 96
[2025-07-27] MEDS ORDERED: LINEZOLID 600 MG TABLET PO NR (12:45)
[2025-07-27 16:00] VITALS: BP 113/61; O2SAT 98
[2025-07-27] MEDS ORDERED: FLUCONAZOLE IN NACL,ISO-OSM 200 MG/100 ML PIGGYBAG IV SCH (17:00)
[2025-07-27] MEDS ORDERED: LORATADINE 10 MG TABLET PO SCH (21:00)
[2025-07-27] MEDS ORDERED: LINEZOLID 600 MG TABLET PO SCH (21:00)
[2025-07-27] MEDS ORDERED: FLUTICASONE PROPIONATE 50 MCG SPRAY NASAL SCH (21:00)
[2025-07-28 01:19] VITALS: BP 135/76; O2SAT 97
[2025-07-28 08:00] VITALS: BP 125/75; O2SAT 96
[2025-07-28 16:56] VITALS: BP 137/69; O2SAT 98
[2025-07-29] VITALS: BP 102/64; O2SAT 96
[2025-07-29 08:00] VITALS: BP 136/75; O2SAT 97
[2025-07-29 16:30] VITALS: BP 136/74; O2SAT 97
[2025-07-29] MEDS ORDERED: AMINO ACIDS 1 EACH TABLET PO SCH (17:00)
[2025-07-29] MEDS ORDERED: ANIDULAFUNGIN 100 MG VIAL IV ONE (19:00)
[2025-07-30 00:40] VITALS: BP 133/74; O2SAT 97
[2025-07-30 08:57] VITALS: BP 130/74; O2SAT 97
[2025-07-30] MEDS ORDERED: DIPHENHYDRAMINE HCL 50 MG/ML VIAL 1ML IV NR (09:00)
[2025-07-30] MEDS ORDERED: DIATRIZOATE MEGLUMINE, SODIUM 30 ML BOTTLE PO NR (09:00)
[2025-07-30] MEDS ORDERED: METHYLPREDNISOLONE SOD SUCC 125 MG VIAL IV NR (09:00)
[2025-07-30 16:44] VITALS: BP 138/88; O2SAT 96
[2025-07-30] MEDS ORDERED: ANIDULAFUNGIN 100 MG VIAL IV SCH (17:00)
[2025-07-31 01:04] VITALS: BP 133/75; O2SAT 96
[2025-07-31 08:00] VITALS: BP 115/65; O2SAT 97
[2025-07-31 16:36] VITALS: BP 128/83; O2SAT 98
[2025-08-01 00:30] VITALS: BP 136/74; O2SAT 96
[2025-08-01 08:00] VITALS: BP 119/77; O2SAT 98
[2025-08-01 09:24] LABS: INR 1.05
[2025-08-01 09:31] LABS: ALT/SGPT 49.0 U/L (12-78); AST/SGOT 18.0 U/L (15-37); BILIRUBIN TOTAL 0.52 mg/dL (0.3-1.2); BILIRUBIN,CONJUGATED 0.16 mg/dL (0.0-0.2); BUN CREA RATIO 32.0 (7.0-25.0); CHOL HDL RATIO 6.3 (0-5.0); CREATININE SERUM 1.03 mg/dL (0.70-1.30); GFR 73.42; GLUCOSE FASTING 149.0 mg/dL (65-100); HDL 29.0 mg/dl (40-60); LDL 103.0 mg/dl (0-130); OSMOLALITY SERUM 288.0 MOSM/KG (275-295); VLDL 52.0 (0-39)
[2025-08-01 10:09] LABS: UREA CLEARANCE 16.4 ML/MIN
[2025-08-01 16:00] VITALS: BP 118/76; O2SAT 96
[2025-08-02] VITALS: BP 123/74; O2SAT 95
[2025-08-02 08:32] VITALS: BP 126/78; O2SAT 96
[2025-08-02 08:36] LABS: BASO % 0.1 % (0.1-1.2); EOS # 0.09 (0.04-0.54); EOS % 1.1 % (0.7-7.0); LYMPH # 1.26 (1.18-3.74); LYMPH % 15.1 % (19.3-53.1); MEAN PLATELET VOLUME 10.00 fl (9.4-12.4); MONO # 0.74 (0.24-0.82); MONO % 8.9 % (4.7-12.5); NEUT # 5.96 (1.56-6.13); NEUT % 71.7 % (34.0-71.1); RED CELL DISTRIBUTION WIDTH 17.1 % (11.6-14.4)
[2025-08-02 09:00] LABS: ERYTHROCYTE SEDIMENTATION RATE 50 mm/hr (0-20)
[2025-08-02 09:21] LABS: BUN CREA RATIO 24.0 (7.0-25.0); CREATININE SERUM 0.8 mg/dL (0.70-1.30); GFR 98.27; GLUCOSE FASTING 132.0 mg/dL (65-100); OSMOLALITY SERUM 282.0 MOSM/KG (275-295)
[2025-08-02 09:27] LABS: BASO % 0.2 % (0.1-1.2); EOS # 0.12 (0.04-0.54); EOS % 1.3 % (0.7-7.0); LYMPH # 1.31 (1.18-3.74); LYMPH % 14.4 % (19.3-53.1); MEAN PLATELET VOLUME 9.50 fl (9.4-12.4); MONO # 0.70 (0.24-0.82); MONO % 7.7 % (4.7-12.5); NEUT # 6.69 (1.56-6.13); NEUT % 73.5 % (34.0-71.1); RED CELL DISTRIBUTION WIDTH 17.2 % (11.6-14.4)
[2025-08-02] MEDS ORDERED: SOD FERRIC GLUC COMPLX/SUCROSE 62.5 MG in 0.9 % SODIUM CHLORIDE 50 ML IV NR (12:45)
[2025-08-02] MEDS ORDERED: PANTOPRAZOLE SODIUM 40 MG/VIAL VIAL IV STA (13:45)
[2025-08-02 16:54] VITALS: BP 129/76; O2SAT 97
[2025-08-02] MEDS ORDERED: FAMOTIDINE/PF 20 MG/2 ML VIAL IV PUSH SCH (21:00)
[2025-08-03 03:11] VITALS: BP 132/79; O2SAT 99
[2025-08-03] MEDS ORDERED: PANTOPRAZOLE SODIUM 40 MG/VIAL VIAL IV SCH (06:00)
[2025-08-03] MEDS ORDERED: SOD FERRIC GLUC COMPLX/SUCROSE 62.5 MG in 0.9 % SODIUM CHLORIDE 50 ML IV SCH (09:00)
[2025-08-03 09:08] VITALS: BP 122/76; O2SAT 98
[2025-08-03 17:00] VITALS: BP 134/84; O2SAT 97
[2025-08-03 20:55] LABS: BASO % 0.4 % (0.1-1.2); EOS # 0.10 (0.04-0.54); EOS % 1.4 % (0.7-7.0); LYMPH # 1.32 (1.18-3.74); LYMPH % 18.4 % (19.3-53.1); MEAN PLATELET VOLUME 9.50 fl (9.4-12.4); MONO # 0.54 (0.24-0.82); MONO % 7.5 % (4.7-12.5); NEUT # 4.98 (1.56-6.13); NEUT % 69.4 % (34.0-71.1); RED CELL DISTRIBUTION WIDTH 15.9 % (11.6-14.4)
[2025-08-04 00:30] VITALS: BP 126/80; O2SAT 98
[2025-08-04 06:16] LABS: BASO % 0.5 % (0.1-1.2); EOS # 0.10 (0.04-0.54); EOS % 1.6 % (0.7-7.0); LYMPH # 1.25 (1.18-3.74); LYMPH % 19.7 % (19.3-53.1); MEAN PLATELET VOLUME 9.70 fl (9.4-12.4); MONO # 0.59 (0.24-0.82); MONO % 9.3 % (4.7-12.5); NEUT # 4.24 (1.56-6.13); NEUT % 66.5 % (34.0-71.1); RED CELL DISTRIBUTION WIDTH 16.1 % (11.6-14.4)
[2025-08-04 07:03] LABS: BUN CREA RATIO 16.0 (7.0-25.0); CREATININE SERUM 0.8 mg/dL (0.70-1.30); GFR 98.27; GLUCOSE FASTING 109.0 mg/dL (65-100); OSMOLALITY SERUM 278.0 MOSM/KG (275-295)
[2025-08-04 08:31] VITALS: BP 144/77; O2SAT 98
[2025-08-04] MEDS ORDERED: MIDAZOLAM HCL 2 MG/2 ML VIAL IV STA (08:53)
[2025-08-04 16:49] VITALS: BP 114/74; O2SAT 97
[2025-08-05 01:01] VITALS: BP 111/76; O2SAT 97
[2025-08-05 07:30] VITALS: BP 124/85
[2025-08-05 17:18] LABS: BASO % 0.3 % (0.1-1.2); EOS # 0.07 (0.04-0.54); EOS % 1.1 % (0.7-7.0); LYMPH # 1.23 (1.18-3.74); LYMPH % 19.3 % (19.3-53.1); MEAN PLATELET VOLUME 9.00 fl (9.4-12.4); MONO # 0.54 (0.24-0.82); MONO % 8.5 % (4.7-12.5); NEUT # 4.33 (1.56-6.13); NEUT % 68.0 % (34.0-71.1); RED CELL DISTRIBUTION WIDTH 16.6 % (11.6-14.4)
[2025-08-05 18:35] VITALS: BP 131/82; O2SAT 97
== END 2025-08-05 21:08 | disposition home or self-care (01) | DRG 330 ==
LOC: O/R 07-20 06:00 → SURH 07-20 11:45
PROVIDERS: Internal Medicine; Internal Medicine Geriatric Medicine; Internal Medicine Infectious Disease; Surgery; ADMIT Colon & Rectal Surgery; ATTEND Colon & Rectal Surgery
PROC: 0DBP4ZZ Excision of Rectum, Percutaneous Endoscopic Approach (ICD-10-PCS; 2025-07-20)
PROC: 0DTN4ZZ Resection of Sigmoid Colon, Percutaneous Endoscopic Approach (ICD-10-PCS; 2025-07-20)
PROC: 0TQB4ZZ Repair Bladder, Percutaneous Endoscopic Approach (ICD-10-PCS; 2025-07-20)
PROC: 0DB84ZZ Excision of Small Intestine, Percutaneous Endoscopic Approach (ICD-10-PCS; principal; 2025-07-20 18:30)
PROC: BW21ZZZ Computerized Tomography (CT Scan) of Abdomen and Pelvis (ICD-10-PCS; 2025-07-22)
PROC: BW21YZZ Computerized Tomography (CT Scan) of Abdomen and Pelvis using Other Contrast (ICD-10-PCS; 2025-07-25)
PROC: 02HV33Z Insertion of Infusion Device into Superior Vena Cava, Percutaneous Approach (ICD-10-PCS; 2025-07-26)
PROC: BW21YZZ Computerized Tomography (CT Scan) of Abdomen and Pelvis using Other Contrast (ICD-10-PCS; 2025-07-30)
PROC: 30243N1 Transfusion of Nonautologous Red Blood Cells into Central Vein, Percutaneous Approach (ICD-10-PCS; 2025-08-02)
PROC: 0DJ08ZZ Inspection of Upper Intestinal Tract, Via Natural or Artificial Opening Endoscopic (ICD-10-PCS; 2025-08-04)
DX: K57.20 Diverticulitis of large intestine with perforation and abscess without bleeding (principal); J98.11 Atelectasis; N32.1 Vesicointestinal fistula; D64.9 Anemia, unspecified; R11.10 Vomiting, unspecified
CPT/HCPCS: 72191